=== PATIENT | male | born 1990 | race Hispanic/Latino ===

== ENCOUNTER 2025-06-21 10:46 | Emergency (ER) | payer SELFPAY ==
--- NOTE | 2025-06-21 11:10 | EDPHYS ---
Physician Documentation [facility] Name: Silvestre Charles Age: 34 yrs Sex: Male : 1990 Arrival Date: 06/21/2025 Time: 10:46 Bed IW2 Private MD: ED Physician Izzy Izquierdo Historical: - Allergies: 06/21 10:51 No Known Allergies; aa5 - Home Meds: 10:51 None [Active]; aa5 - PMHx: 10:51 None; aa5 - PSHx: 10:51 None; aa5 - Immunization history:: Adult Immunizations unknown. - Infectious Disease History:: Denies. - Social history:: Smoking status: Reported history of juuling and/or vaping. Vital Signs: 10:50 BP 153 / 81; Pulse 70; Resp 16 S; Temp 98.1(O); Pulse Ox 99% on R/A; Weight 92.99 kg aa5 (R); Height 5 ft. 9 in. (R); 10:50 Body Mass Index 30.27 (92.99 kg, 175.26 cm) aa5 MDM: 10:47 Medical Screening Exam initiated dr5 11:04 ED course: Patient ambulated to room. Patient told tech that he does not would be seen dr5 and left ER.. Administered Medications: No medications were administered Disposition Summary: 06/21/25 11:09 Eloped Notes: Disposition: before being seen by provider jacquelyn Reason: unknown jacquelyn Signatures: Shana Dahl RN RN aa5 Kalpesh Gonzales RN RN jl7 Porfirio Duval, WOODY-C GORE SEAMER-Cdr5
--- NOTE | 2025-06-21 11:10 | ER ---
Nurse's Notes [facility] Name: Silvestre Charles Age: 34 yrs Sex: Male : 1990 Arrival Date: 06/21/2025 Time: 10:46 Bed IW2 Private MD: Diagnosis: Presentation: 06/21 10:50 Chief complaint: Patient states: "feeling like I am about to pass out for about an aa5 hour". Pt denies any other symptoms. Coronavirus screen: At this time, the client does not indicate any symptoms associated with coronavirus-19. Ebola Screen: Patient denies travel to an Ebola-affected area in the 21 days before illness onset. Initial Sepsis Screen: Does the patient meet any 2 criteria? No. Patient's initial sepsis screen is negative. Does the patient have a suspected source of infection? No. Patient's initial sepsis screen is negative. Risk Assessment: Do you want to hurt yourself or someone else? Patient reports no desire to harm self or others. Onset of symptoms was June 21, 2025. 10:50 Acuity: PALAK 3 aa5 10:50 Method Of Arrival: Ambulatory aa5 Historical: - Allergies: 10:51 No Known Allergies; aa5 - Home Meds: 10:51 None [Active]; aa5 - PMHx: 10:51 None; aa5 - PSHx: 10:51 None; aa5 - Immunization history:: Adult Immunizations unknown. - Infectious Disease History:: Denies. - Social history:: Smoking status: Reported history of juuling and/or vaping. Vital Signs: 10:50 BP 153 / 81; Pulse 70; Resp 16 S; Temp 98.1(O); Pulse Ox 99% on R/A; Weight 92.99 kg aa5 (R); Height 5 ft. 9 in. (R); 10:50 Body Mass Index 30.27 (92.99 kg, 175.26 cm) aa5 ED Course: 10:47 Patient arrived in ED. gl 10:47 Porfirio Duval FNP-C is PHCP. dr5 10:47 Izzy Izquierdo MD is Attending Physician. dr5 10:50 Arm band placed on. aa5 10:51 Triage completed. aa5 10:56 Luis May, RN is Primary Nurse. bp 11:08 Izzy Izquierdo MD is Attending Physician. sw6 Administered Medications: No medications were administered Outcome: 11:07 Eloped from patient exam room, before seeing physician Time discovered patient gone: jl7 June 21, 2025 at 11:08 11:09 Patient left the ED. jl7 Signatures: Shana Dahl, RN RN aa5 Kalpesh Gonzales RN RN jl7 Luis May RN RN bp Izzy Izquierdo MD MD sw6 Porfirio Duval, VIDEO MACHINES MECHANIC-C VIDEO MACHINES MECHANIC-Cdr5 Rohini Escoto, Reg Reg gl Corrections: (The following items were deleted from the chart) 10:52 10:50 Pulse 70bpm; Resp 16bpm; Spontaneous; Pulse Ox 99% RA; Temp 98.1F Oral; 92.99 kg aa5 Reported; Height 5 ft. 9 in. Reported; BMI: 30.2; aa5
== END 2025-06-21 11:09 | disposition left against medical advice (07) ==
LOC: ER 10:46
DX: Z53.21 Procedure and treatment not carried out due to patient leaving prior to being seen by health care provider (principal)
CPT/HCPCS: 99281